=== PATIENT | female | born 1950 | race Hispanic/Latino ===

== ENCOUNTER 2016-07-16 15:51 | Emergency (ER) | payer OTHER ==
[~2016-07-16] VITALS: Ht 157.5 cm; Wt 96.2 kg
[~2016-07-16 15:51] MED LIST: BACTRIM DS 8001 TAB PO; HYDRODIURIL 2525 MG PO; KEFLEX500 MG PO; LISINOPRIL20 MG PO; PERCOCET 325 MG1 TA2 PO
[2016-07-16 15:59] VITALS: BP 119/84
[2016-07-16] MEDS ORDERED: LISINOPRIL20 M1 PO (16:54)
[2016-07-16] MEDS ORDERED: PANTOPRAZOLE SO40 M1 PO (16:54)
[2016-07-16] MEDS ORDERED: MULTI-DAY VITA1 EACH PO (16:54)
[2016-07-16] MEDS ORDERED: VIBRAMYCIN100 MG PO (17:05)
[2016-07-16] MEDS ORDERED: NAPROSYN500 M1 PO (17:05)
--- NOTE | 2016-07-16 17:05 | ED SKIN/ALLERGY COMPLAINT ---
History of Present Illness General Chief Complaint: Skin Rash/ Abcess Stated Complaint: ?ABCESS TO VAGINA Source: patient Exam Limitations: no limitations Vital Signs & Intake/Output Vital Signs & Intake/Output Vital Signs Date Time Temp Pulse Resp B/P B/P Pulse O2 O2 Flow FiO2 Mean Ox Delivery Rate 07/16 1642 99 Room Air 07/16 1559 98.2 69 16 119/84 96 Room Air Allergies Coded Allergies: NO KNOWN ALLERGIES (10/03/14) Reconcile Medications Doxycycline Hyclate (Vibramycin) 100 MG CAPSULE 1 CAP PO BID ABSCESS Lisinopril 20 MG TABLET 1 TAB PO DAILY BP (Reported) Multivitamin (Multi-Day Vitamins) 1 EACH TABLET 1 TAB PO DAILY SUPPLEMENT ( Reported) Naproxen (Naprosyn) 500 MG TABLET 1 TAB PO BID PRN PAIN AND INFLAMMATION Pantoprazole Sodium 40 MG TABLET.DR 1 TAB PO DAILY GI (Reported) Triage Note: TRIAGE: "I HAVE A BOIL TO THE TOP OF MY PRIVATE PART" X 1 WEEK, UNRELIEVED WITH WARM COMPRESSES. TOOK ASA WITH NO RELIEF. DENIES FEVERS, DRAINAGE OR DISCHARGE FROM SITE. UNABLE TO VISUALIZE IN TRIAGE. AFEBRILE Triage Nurses Notes Reviewed? yes HPI: This patient is a 66 year old female who presented for evaluation of possible abscess to groin region. She first noticed a bump about one week ago. The bump has gotten bigger, has not drained, and is painfl, up to a 5 out of 10. It is worse when sitting in certain positions. She tried taking aspirin and using warm compresses without any relief of her symptoms. Pain is nonradiating and constant. She denied any fevers, chills, or abdominal pain. (SHIVA LAW PA-C) Past History Travel History Traveled to [place] past 21 day No Medical History Any Pertinent Medical History? see below for history Neurological: NONE EENT: NONE Cardiovascular: hypertension Respiratory: NONE Gastrointestinal: NONE Hepatic: NONE Renal: NONE Musculoskeletal: NONE Psychiatric: NONE Endocrine: NONE Surgical History Surgical History: BILAT KNEE REPLACMENTS Psychosocial History What is your primary language Kazakh Tobacco Use: Current Daily Use Daily Tobacco Use Amount/Type: => 5 Cigarettes daily ETOH Use: denies use Illicit Drug Use: denies illicit drug use Family History Hx Contributory? No (SHIVA LAW PA-C) Review of Systems Review of Systems Constitutional: Reports: no symptoms. EENTM: Reports: no symptoms. Respiratory: Reports: no symptoms. Cardiovascular: Reports: no symptoms. GI: Reports: no symptoms. Musculoskeletal: Reports: no symptoms. Skin: Reports: see HPI. Neurological/Psychological: Reports: no symptoms. All Other Systems: Reviewed and Negative (SHIVA LAW PA-C) Physical Exam Physical Exam General Appearance: well developed/nourished, no apparent distress, alert, awake Comments: General: Well-developed, well-nourished person in no acute distress HEENT: Head normocephalic/atraumatic, moist mucous membranes Neck: Supple with no lymphadenopathy Back: Normal gait Respiratory: No respiratory distress. Speaking in full sentences Gential: Normal hair distribution. No edema to the external genitalia. 1 cm in diameter, raised lesion to the mons pubis with no drainage and no fluctuation. Indurated with no surrounding edema. Tender to palpation Neuro: A&Ox3 Psych: Mood and affest normal (SHIVA LAW PA-C) Progress Differential Diagnosis: abscess/cellulitis, allergic reaction, contact dermatitis, drug reaction, erythema multiforme, lyme disease, urticaria Plan of Care: This patient is a 66 year old female who presented for evaluation of abscess to mons pubis. Area is indurated and tender. No fluctuance or drainable fluid pockets at this time. This patient will be discharged with antibiotics and instructions for warm compresses and to return for any worsening symptoms. (SHIVA LAW PA-C) Departure Departure Disposition: HOME OR SELF CARE Condition: Stable Clinical Impression Primary Impression: Abscess Referrals: UNKNOWN (PCP) Additional Instructions: TAKE ANTIOBIOTIC PRESCRIBED. WARM COMPRESSES TO THE AREA. MEDICATION FOR PAIN PRESCRIBED. RETURN FOR ANY WORSENING SYMPTOMS OR CONCERNS. Departure Forms: Customer Survey General Discharge Information Prescriptions: Current Visit Scripts Naproxen (Naprosyn) 1 TAB PO BID PRN PAIN AND INFLAMMATION #20 TAB Doxycycline Hyclate (Vibramycin) 1 CAP PO BID #14 CAP (SHIVA LAW PA-C) PA/ERCO MACHINE OPERATOR Co-Sign Statement Statement: ED Attending supervision documentation- [] I saw and evaluated the patient. I have also reviewed all the pertinent lab results and diagnostic results. I agree with the findings and the plan of care as documented in the PA's/ERCO MACHINE OPERATOR's documentation. [X] I have reviewed the ED Record and agree with the PA's/ERCO MACHINE OPERATOR's documentation. [] Additions or exceptions (if any) to the PAs/ERCO MACHINE OPERATOR's note and plan are summarized below: [] (SILVINO CALDWELL,DANIEL)
== END 2016-07-16 17:13 ==
LOC: ERH 15:51
DX: L02.214 Cutaneous abscess of groin (principal)

== ENCOUNTER 2017-08-24 11:02 | Emergency (ER) | payer OTHER ==
[~2017-08-24] VITALS: Ht 157.5 cm; Wt 90.3 kg
[~2017-08-24 11:02] MED LIST changes: +LISINOPRIL20 M1 PO; +MULTI-DAY VITA1 EACH PO; +NAPROSYN500 M1 PO; +PANTOPRAZOLE SO40 M1 PO; +VIBRAMYCIN100 MG PO
--- NOTE | 2017-08-24 11:43 | ED GI/GU/ABDOMINAL COMPLAINT ---
History of Present Illness General Chief Complaint: Abdominal Pain/Flank Pain Stated Complaint: ABD PAIN, DX ULCER, GIVENRX, HERE NOW FOR PAIN Source: patient Exam Limitations: no limitations Vital Signs & Intake/Output Vital Signs & Intake/Output Vital Signs Date Time Temp Pulse Resp B/P B/P Pulse O2 O2 Flow FiO2 Mean Ox Delivery Rate 08/24 1222 Room Air 08/24 1108 97.9 80 20 143/94 96 Room Air Allergies Coded Allergies: No Known Allergies (08/24/17) Reconcile Medications Doxycycline Hyclate (Vibramycin) 100 MG CAPSULE 1 CAP PO BID ABSCESS Hydrocodone/Acetaminophen ([place] 5-325 Tablet) 5 MG-325 MG TABLET 1-2 TAB PO Q4-6 PRN PRN SEVERE PAIN Lidocaine HCl (Lidocaine HCl Viscous) 2 % SOLUTION 15 ML PO 4 TIMES/DAY ABDOMINAL INDU Lisinopril 20 MG TABLET 1 TAB PO DAILY BP (Reported) Multivitamin (Multi-Day Vitamins) 1 EACH TABLET 1 TAB PO DAILY SUPPLEMENT ( Reported) Naproxen (Naprosyn) 500 MG TABLET 1 TAB PO BID PRN PAIN AND INFLAMMATION Pantoprazole Sodium 40 MG TABLET.DR 1 TAB PO DAILY GI (Reported) Triage Note: TRIAGE: PT TO ER WITH DAUGHTER IN LAW C/C UPPER ABD PAIN X 1 WK, CONSTANT IN NATURE. +N/-V/-D. -URINARY S/S. LBM THIS AM WAS BLACK, LNBM WAS YESTERDAY. WAS SEEN AT [facility] YESTERDAY, HAD BLOOD AND URINE TESTS DONE. WAS GIVEN INSTRUCTIONS WITH INFORMATION ON "GASTRITIS VS ULCER" AND PRESCRIPTION FOR CARAFATE. HAS HAD 1 DOSE OF CARAFATE TODAY AND 1 DOSE YESTERDAY. REPORTS NO RELIEF OF SYMPTOMS WITH CARAFATE. Triage Nurses Notes Reviewed? yes LMP (ages 10-50): post menopausal ? n Is pt currently ? No Onset: Gradual Duration: week(s): (1), constant, continues in ED, getting worse Timing: single episode today Quality/Severity: burning, sharpness Severity Numbers: 8 Location: epigastric, periumbilical (superior) Radiation: no radiation Activities at Onset: none Prior Abdominal Problems: none Past Sexual History: Unobtainable at this time No Modifying Factors: none Modifying Factors: Worsens With: eating, lying down, palpation. Associated Symptoms: abdominal pain, nausea/vomiting, Black stool HPI: 67-year-old female past medical history of hypertension presents for evaluation of abdominal pain. Patient states that for the past week she has had pain in her epigastric and superior periumbilical area. The pain has been constant and getting worse. She's got pain as sharp and burning. It is worse with eating laying down and palpation of the area. Associated with nausea but no vomiting. Patient reports she was seen at [facility] yesterday for these symptoms. They did blood work urinalysis and diagnosed her with gastritis versus peptic ulcer disease. She was given Carafate and has been taking Protonix. She states she took a single dose of this but has not improved. She also notes that she had an episode of black stool today. She had a bowel movement yesterday that was normal. She states she did take Pepto-Bismol 2 days ago for symptoms without any improvement. She does not take blood thinners no dizziness lightheadedness chest pain shortness of breath back pain. She's never had a colonoscopy. She does report that 2 weeks ago she took aspirin for headache. She also has naproxen on her medication list. (Kermit Ace) Past History Travel History Traveled to [place] past 21 day No Medical History Any Pertinent Medical History? see below for history Neurological: NONE EENT: NONE Cardiovascular: hypertension Respiratory: NONE Gastrointestinal: NONE Hepatic: NONE Renal: NONE Musculoskeletal: NONE Psychiatric: NONE Endocrine: NONE Blood Disorders: NONE Cancer(s): NONE MEDICAID SERVICE COORDINATOR/Reproductive: NONE Surgical History Surgical History: BILAT KNEE REPLACMENTS Psychosocial History What is your primary language Estonian Tobacco Use: Current Daily Use Daily Tobacco Use Amount/Type: => 5 Cigarettes daily ETOH Use: denies use Illicit Drug Use: denies illicit drug use Family History Hx Contributory? No (Kermit Ace) Review of Systems Review of Systems Constitutional: Reports: no symptoms. EENTM: Reports: no symptoms. Respiratory: Reports: no symptoms. Cardiovascular: Reports: no symptoms. GI: Reports: see HPI, abdominal pain, melena, nausea. Genitourinary: Reports: no symptoms. Musculoskeletal: Reports: no symptoms. Skin: Reports: no symptoms. Neurological/Psychological: Reports: no symptoms. Hematologic/Endocrine: Reports: no symptoms. Immunologic/Allergic: Reports: no symptoms. All Other Systems: Reviewed and Negative (Kermit Ace) Physical Exam Physical Exam General Appearance: well developed/nourished, no apparent distress, alert, awake , mild distress, obese Head: atraumatic, normal appearance Eyes: Bilateral: normal appearance, PERRL, EOMI. Ears, Nose, Throat, Mouth: moist mucous membrane Neck: normal inspection, supple, full range of motion Respiratory: normal breath sounds, chest non-tender, no respiratory distress, lungs clear Cardiovascular: regular rate/rhythm, normal peripheral pulses, systolic murmur Peripheral Pulses: 2+ radial (R), 2+ radial (L) Gastrointestinal: normal bowel sounds, soft, no organomegaly, tenderness ( epigastric), tenderness to palpation in the epigastric and superior periumbilical area. No rebound or guarding abdomen is soft no rigidity Rectal: normal inspection, normal rectal tone, black stool (heme-negative) Back: normal inspection, normal range of motion, no cvat Extremities: normal range of motion Neurologic/Psych: no motor/sensory deficits, awake, alert, oriented x 3, normal gait Skin: intact, normal color, warm/dry Core Measures ACS in differential dx? No Sepsis Present: No Sepsis Focused Exam Completed? No (Diony GARCIA,Kermit) Progress Differential Diagnosis: biliary colic, bowel obstruction, colon cancer, diverticulitis, gastritis, ischemic bowel, inflamm bowel dis, pancreatitis, peptic ulcer, PUD/GERD, perforated viscous, SBO Diagnostic Imaging: Viewed by Me: CT Scan. Discussed w/RAD: CT Scan. Radiology Impression: PATIENT: ADILIA KILGORE PRESENT AGE: 67 PATIENT ACCOUNT NO: [id number] : 52 LOCATION: [facility] ORDERING PHYSICIAN: Kermit GARCIA SERVICE DATE: 08/24/17 EXAM TYPE: CAT - CT ABD & PELVIS W IV CONTRAST EXAMINATION: CT ABDOMEN AND PELVIS WITH CONTRAST CLINICAL INFORMATION: Pancreatitis, cholecystitis. Epigastric pain for one week. COMPARISON: None TECHNIQUE: Multidetector volumetric imaging was performed of the abdomen and pelvis following IV administration of 85 mL of Optiray 320 intravenous contrast. Sagittal and coronal reformatted images were obtained on the technologist's workstation. DLP: 477 mGy-cm FINDINGS: LUNG BASES: Linear subpleural opacity is noted in the medial right lung base likely representing scarring or atelectasis. A small hiatal hernia is present. LIVER, GALLBLADDER, AND BILIARY TREE: The liver is normal in size, shape, and attenuation. No focal hepatic lesion or biliary ductal dilatation is present. The gallbladder is unremarkable with no evidence of radiopaque gallstones, gallbladder wall thickening, or obvious pericholecystic inflammatory changes. PANCREAS: There is enlargement head of the pancreas with surrounding fat stranding. No loss of normal pancreatic parenchymal enhancement. No fluid collections. SPLEEN: Unremarkable. ADRENAL GLANDS: Unremarkable. KIDNEYS AND URETERS: The kidneys are normal in size, shape, and attenuation. No hydronephrosis, hydroureter, or calculi seen. No perinephric stranding. BLADDER: Unremarkable. GASTROINTESTINAL TRACT: Patient is status post sleeve gastrectomy. No evidence of leak or fluid collection around the stomach. No small bowel dilatation. The large bowel is unremarkable. Normal appendix. ABDOMINAL WALL: A small fat-containing umbilical hernia is noted. There are benign coarse subcutaneous fat calcifications in the subcutaneous soft tissue in the flanks bilaterally. LYMPH NODES: There are reactive peripancreatic and portacaval lymph nodes. VASCULAR: Unremarkable. The portal vein opacifies normally. The splenic vein opacifies normally. No large artery aneurysm appreciated. There are scattered atherosclerotic vascular calcifications. PELVIC VISCERA: Unremarkable. 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 Right convex curvature of the lumbar spine is noted. There is multilevel posterior facet arthropathy. There is severe bilateral neuroforaminal narrowing at L4-L5. IMPRESSION: 1. Interstitial pancreatitis involving the pancreatic head with no evidence of necrosis, fluid collection, or vascular complication at this time. 2. Small hiatal hernia. 3. 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 Consider further evaluation with nonemergent lumbar spine MRI if clinically indicated. DICTATED BY: Shawn Figueroa MD DATE/TIME DICTATED:08/24/171405 ELECTRONIC SENSING EQUIPMENT ASSEMBLER: MICHEL DATE/TIME TRANSCRIBED:08/24/171405 CONFIDENTIAL, DO NOT COPY WITHOUT APPROPRIATE AUTHORIZATION. <Electronically signed in Other Vendor System> SIGNED BY: Shawn Figueroa MD 08/24/17 142 Initial ED EKG: normal sinus rhythm, no ST T wave changes, age indeterminate inferior infarct (Black PA,Kermit) Plan of Care: Orders Procedure Date/time Status Add-on Test (ER Only) 08/24 1426 Active AMYLASE 08/24 1245 Complete Add-on Test (ER Only) 08/24 1140 Active URINALYSIS 08/24 1140 Active TROPONIN LEVEL 08/24 1118 Complete PARTIAL THROMBOPLASTIN TIME 08/24 1118 Complete PROTHROMBIN TIME 08/24 1118 Complete LIPASE 08/24 1118 Complete LACTIC ACID 08/24 1118 Complete COMPREHENSIVE METABOLIC PANEL 08/24 1118 Complete CBC WITHOUT DIFFERENTIAL 08/24 111 Complete EKG 08/24 111 Active Laboratory Tests 08/24/17 1245: Anion Gap 9, Estimated GFR > 60, BUN/Creatinine Ratio 20.0, Glucose 100 H, Lactic Acid 0.7, Calcium 9.8, Total Bilirubin 0.8, AST 45 H, ALT 48, Alkaline Phosphatase 122, Troponin I < 0.01, Total Protein 6.9, Albumin 3.8, Globulin 3.1 , Albumin/Globulin Ratio 1.2, Amylase 74, Lipase 116, PT 11.7, INR 1.07, APTT 32 08/24/17 1205: CBC w Diff NO MAN DIFF REQ, RBC 4.28, MCV 93.1, MCH 31.3 H, MCHC 33.6, RDW 13.8 , MPV 10.3, Gran % 74.6, Lymphocytes % 17.2 L, Monocytes % 6.5, Eosinophils % 1.2, Basophils % 0.5, Absolute Granulocytes 7.4 H, Absolute Lymphocytes 1.7, Absolute Monocytes 0.6, Absolute Eosinophils 0.1, Absolute Basophils 0 Patient seen and evaluated. She is here with epigastric and periumbilical abdominal pain for the past week. She also reports a episode of black stool today. She does not take blood thinners. Her vital signs are stable. She was seen at [facility] yesterday given Carafate and Protonix. She also reports using Pepto-Bismol without much improvement. She denies any vomiting but does report nausea. Rectal exam does reveal black stool but it is heme negative. She is also been using naproxen and aspirin. Labs EKG ordered. Patient medicated with IV Protonix Zofran and GI cocktail. Patient will also get a CAT scan. On reevaluation patient reports significant improvement after GI cocktail. Blood work is not showing any significant findings including a negative lipase and amylase. CT scan suggests interstitial pancreatitis the pancreatic head. Patient does not have any gallstones. She denies alcohol use. She has no previous history of pancreatitis. He is been no nausea or vomiting. Reviewed results with patient. She was given a second GI cocktail and overall is feeling much better. She'll be instructed to continue viscous lidocaine pantoprazole as directed. Follow-up with gastroenterology on Saturday. Discussed with patient the importance of close follow-up. Discussed return precautions in detail return immediately with worsening pain and bright red blood per rectum vomiting fever or any other concerns. Case discussed with Dr. Stone he agrees the plan patient agrees the plan (Kermit Ace) (Bertha CALDWELL,Cesar Hicks) Departure Departure Disposition: HOME OR SELF CARE Condition: Stable Clinical Impression Primary Impression: Gastritis Qualifiers: Gastritis type: unspecified gastritis Chronicity: acute Gastritis bleeding: without bleeding Qualified Code: K29.00 - Acute gastritis without bleeding Secondary Impressions: Pancreatitis Qualifiers: Chronicity: acute Pancreatitis type: unspecified pancreatitis type Acute pancreatitis complication: unspecified Qualified Code: K85.90 - Acute pancreatitis without necrosis or infection, unspecified Referrals: Hermelinda CALDWELL,Rodriguez Will (PCP) Additional Instructions: Avoid greasy fatty spicy foods. Eat a clear liquid diet for the next 24 hours then advance as tolerated. Continue pantoprazole. Viscous lidocaine can also be used as needed for abdominal pain. Vicodin for severe pain only this may cause drowsiness. Make a follow point with Dr. Ang revenue liaison as soon as possible. Call his office on Saturday. Monitor symptoms closely if you have worsening pain blood in her stool vomiting or any other concerns return immediately. Please go over all results of today's visit with your primary care doctor. Contact your primary care doctor to let them know you were here in the emergency room. There may be nonspecific findings which may not be related to your visit today here in the emergency room but may require further evaluation and chronic monitoring by your primary care doctor. If you had a laceration today the chance of foreign body always remains. You should follow-up with your primary care doctor for recheck in 3-5 days for a wound check. If you had an x-ray done there is a chance that a fracture could have been missed on initial read and you should follow-up with your primary care doctor for repeat x-rays if symptoms persist. If your blood pressure was elevated here in the emergency room please have rechecked by her primary care doctor within the next 48 hours by your primary care doctor. If you were prescribed a narcotic here in the emergency room or any type of controlled substances you're not allowed to drive while taking this medication or operate any type of heavy machinery. Narcotics can make you feel lightheaded dizziness nausea and can cause constipation. You may need to garbage pick up man a stool softener. Thank you for choosing [facility] emergency room. Please return to the emergency room immediately if you have any other concerns worsening of symptoms. Departure Forms: Customer Survey General Discharge Information Prescriptions: Current Visit Scripts Hydrocodone/Acetaminophen ([place] 5-325 Tablet) 1-2 TAB PO Q4-6 PRN PRN SEVERE PAIN #10 TAB Lidocaine HCl (Lidocaine HCl Viscous) 15 ML PO 4 TIMES/DAY #100 ML (Kermit Ace) PA/IT SALES CONSULTANT Co-Sign Statement Statement: ED Attending supervision documentation- [] I saw and evaluated the patient. I have also reviewed all the pertinent lab results and diagnostic results. I agree with the findings and the plan of care as documented in the PA's/IT SALES CONSULTANT's documentation. [x] I have reviewed the ED Record and agree with the PA's/IT SALES CONSULTANT's documentation. [] Additions or exceptions (if any) to the PAs/IT SALES CONSULTANT's note and plan are summarized below: [] (Bertha CALDWELL,Cesar Hicks)
[2017-08-24 12:14] LABS: ABSOLUTE BASOPHIL COUNT 0 /CUMM (0.0-0.2); ABSOLUTE EOSINOPHIL COUNT 0.1 /CUMM (0.0-0.7); ABSOLUTE GRANULOCYTE CT 7.4 /CUMM (1.4-6.5); ABSOLUTE LYMPH COUNT 1.7 /CUMM (1.2-3.4); ABSOLUTE MONOCYTE COUNT 0.6 /CUMM (0.10-0.60); BASOPHIL % 0.5 % (0.0-2.0); EOSINOPHIL % 1.2 % (0-5); GRANULOCYTE % 74.6 % (42.2-75.2); HEMATOCRIT 39.8 % (37-47); MEAN CORPUSCULAR HGB 31.3 PG (27.0-31.0); MEAN CORPUSCULAR HGB CONC 33.6 G/DL (33.0-37.0); MEAN CORPUSCULAR VOLUME 93.1 FL (81.0-99.0); MEAN PLATELET VOLUME 10.3 FL (7.4-10.4); PLATELET COUNT 201 /CUMM (130-400); RBC DISTRIBUTION WIDTH 13.8 % (11.5-14.5); RED BLOOD CELL CT 4.28 /CUMM (4.20-5.40); WHITE BLOOD CELL COUNT 9.9 /CUMM (4.8-10.8)
[2017-08-24 13:09] LABS: PT 11.7 SEC (9.4-12.5); PTT 32 SEC (25-37)
--- NOTE | 2017-08-24 14:22 | CT SCAN REPORT ---
EXAMINATION: CT ABDOMEN AND PELVIS WITH CONTRAST CLINICAL INFORMATION: Pancreatitis, cholecystitis. Epigastric pain for one week. COMPARISON: None TECHNIQUE: Multidetector volumetric imaging was performed of the abdomen and pelvis following IV administration of 85 mL of Optiray 320 intravenous contrast. Sagittal and coronal reformatted images were obtained on the technologist's workstation. DLP: 477 mGy-cm FINDINGS: LUNG BASES: Linear subpleural opacity is noted in the medial right lung base likely representing scarring or atelectasis. A small hiatal hernia is present. LIVER, GALLBLADDER, AND BILIARY TREE: The liver is normal in size, shape, and attenuation. No focal hepatic lesion or biliary ductal dilatation is present. The gallbladder is unremarkable with no evidence of radiopaque gallstones, gallbladder wall thickening, or obvious pericholecystic inflammatory changes. PANCREAS: There is enlargement head of the pancreas with surrounding fat stranding. No loss of normal pancreatic parenchymal enhancement. No fluid collections. SPLEEN: Unremarkable. ADRENAL GLANDS: Unremarkable. KIDNEYS AND URETERS: The kidneys are normal in size, shape, and attenuation. No hydronephrosis, hydroureter, or calculi seen. No perinephric stranding. BLADDER: Unremarkable. GASTROINTESTINAL TRACT: Patient is status post sleeve gastrectomy. No evidence of leak or fluid collection around the stomach. No small bowel dilatation. The large bowel is unremarkable. Normal appendix. ABDOMINAL WALL: A small fat-containing umbilical hernia is noted. There are benign coarse subcutaneous fat calcifications in the subcutaneous soft tissue in the flanks bilaterally. LYMPH NODES: There are reactive peripancreatic and portacaval lymph nodes. VASCULAR: Unremarkable. The portal vein opacifies normally. The splenic vein opacifies normally. No large artery aneurysm appreciated. There are scattered atherosclerotic vascular calcifications. PELVIC VISCERA: Unremarkable. 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 Right convex curvature of the lumbar spine is noted. There is multilevel posterior facet arthropathy. There is severe bilateral neuroforaminal narrowing at L4-L5. IMPRESSION: 1. Interstitial pancreatitis involving the pancreatic head with no evidence of necrosis, fluid collection, or vascular complication at this time. 2. Small hiatal hernia. 3. 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 Consider further evaluation with nonemergent lumbar spine MRI if clinically indicated.
[2017-08-24] MEDS ORDERED: NORCO 5-325 TA1 EACH PO (15:04)
[2017-08-24] MEDS ORDERED: LIDOCAINE HCL V15 ML PO (15:04)
[2017-08-24 15:17] VITALS: BP 129/84
== END 2017-08-24 15:41 ==
LOC: ERH 11:02
PROVIDERS: Physician Assistant Medical
DX: K29.70 Gastritis, unspecified, without bleeding (principal); K85.90 Acute pancreatitis without necrosis or infection, unspecified
CPT/HCPCS: 74177; 93005; 93010; 96374; J2405

== ENCOUNTER 2017-09-17 22:52 | Emergency (ER) | payer OTHER ==
[~2017-09-17] VITALS: Ht 157.5 cm; Wt 90.7 kg
[~2017-09-17 22:52] MED LIST changes: +LIDOCAINE HCL V15 ML PO; +NORCO 5-325 TA1 EACH PO
[2017-09-17 23:14] VITALS: BP 172/92
[2017-09-17 23:50] LABS: ABSOLUTE BASOPHIL COUNT 0.1 /CUMM (0.0-0.2); ABSOLUTE EOSINOPHIL COUNT 0.2 /CUMM (0.0-0.7); ABSOLUTE GRANULOCYTE CT 7.4 /CUMM (1.4-6.5); ABSOLUTE LYMPH COUNT 2.7 /CUMM (1.2-3.4); ABSOLUTE MONOCYTE COUNT 0.7 /CUMM (0.10-0.60); BASOPHIL % 0.5 % (0.0-2.0); EOSINOPHIL % 1.9 % (0-5); GRANULOCYTE % 66.6 % (42.2-75.2); HEMATOCRIT 39.8 % (37-47); MEAN CORPUSCULAR HGB 31.8 PG (27.0-31.0); MEAN CORPUSCULAR HGB CONC 34.2 G/DL (33.0-37.0); MEAN CORPUSCULAR VOLUME 92.9 FL (81.0-99.0); MEAN PLATELET VOLUME 10.3 FL (7.4-10.4); PLATELET COUNT 168 /CUMM (130-400); RBC DISTRIBUTION WIDTH 13.3 % (11.5-14.5); RED BLOOD CELL CT 4.29 /CUMM (4.20-5.40); WHITE BLOOD CELL COUNT 11.2 /CUMM (4.8-10.8)
--- NOTE | 2017-09-17 23:58 | ED GI/GU/ABDOMINAL COMPLAINT ---
History of Present Illness General Chief Complaint: Abdominal Pain/Flank Pain Stated Complaint: ABD PAIN Source: patient Exam Limitations: no limitations Vital Signs & Intake/Output Vital Signs & Intake/Output Vital Signs Date Time Temp Pulse Resp B/P B/P Pulse O2 O2 Flow FiO2 Mean Ox Delivery Rate 09/18 0035 Room Air 09/17 2314 98.3 78 18 172/92 97 Room Air ED Intake and Output 09/18 0000 09/17 1200 Intake Total Output Total Balance Patient 200 lb Weight Weight Reported by Patient Measurement Method Allergies Coded Allergies: No Known Allergies (08/24/17) Reconcile Medications Doxycycline Hyclate (Vibramycin) 100 MG CAPSULE 1 CAP PO BID ABSCESS Hydrocodone/Acetaminophen (Dudley 5-325 Tablet) 5 MG-325 MG TABLET 1-2 TAB PO Q4-6 PRN PRN SEVERE PAIN Lidocaine HCl (Lidocaine HCl Viscous) 2 % SOLUTION 15 ML PO 4 TIMES/DAY ABDOMINAL INDU Lisinopril 20 MG TABLET 1 TAB PO DAILY BP (Reported) Multivitamin (Multi-Day Vitamins) 1 EACH TABLET 1 TAB PO DAILY SUPPLEMENT ( Reported) Naproxen (Naprosyn) 500 MG TABLET 1 TAB PO BID PRN PAIN AND INFLAMMATION Omeprazole Magnesium (Prilosec Otc) 20 MG TABLET.DR 1 TAB PO BID stomach burning Pantoprazole Sodium 40 MG TABLET.DR 1 TAB PO DAILY GI (Reported) Triage Note: PT FROM HOME C/O MID ABD PAIN X4 WEEKS, PT SEEN HERE 3 WEEKS PRIOR FOR SAME, PT STATED CT SCAN SHOWED AN ULCER AND INFLAMMATION. PT STATES HAS AN APPT THURS FOR GI, BUT PAIN BECAME 10/10. PT STATES MID ABD CRAMPING THAT IS NON RADIATING. BP ELEVATED 172/92 IN TRIAGE. Triage Nurses Notes Reviewed? yes ? n Is pt currently ? No Duration: day(s): Timing: recent history Location: epigastric Radiation: no radiation Activities at Onset: none Modifying Factors: Worsens With: palpation. Associated Symptoms: abdominal pain HPI: 67 yo woman with 2 days of mid epigastric burning pain, worse at night, without nausea, vomiting, diarrhea. She was seen on 08/24/17, had a ct scan suggested of pancreatitis, but with normal labs. She felt better with a gi cocktail, but didn't take any meds afterwards. Of note, she shares that the pain is worse after eating spicy foods. She ate spicy foods yesterday. She shares other risk factors for GI issues. She smokes cigarettes, enjoys spicy foods, but does not regularly drink alcohol. She notes no radiation, chest pain, shortness of breath, diaphoresis. She is otherwise well. Past History Travel History Traveled to [place] past 21 day No Medical History Any Pertinent Medical History? 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 No Review of Systems Review of Systems Constitutional: Denies: see HPI. Physical Exam Physical Exam Gastrointestinal: normal bowel sounds, soft, mild mid epigastric tenderness to palpation. no rebound. no guarding. no romero's sign. no rlq tenderness. Comments: Review of Systems - except as otherwise noted in HPI Review of Systems Constitutional:no symptoms. EENTM:no symptoms. Respiratory:no symptoms. Cardiovascular:no symptoms. GI:no symptoms. Genitourinary:no symptoms. Musculoskeletal:no symptoms. Skin:no symptoms. Neurological/Psychological:no symptoms. Hematologic/Endocrine:no symptoms. Immunologic/Allergic:no symptoms. All Other Systems: Reviewed and Negative Physical Exam Physical Exam General Appearance: well developed/nourished, no apparent distress Head: atraumatic, normal appearance Eyes: Bilateral: normal appearance. Ears, Nose, Throat: normal pharynx, normal ENT inspection Neck: normal inspection, supple, full range of motion Respiratory: normal breath sounds, chest non-tender, no respiratory distress, quiet respiration, lungs clear Cardiovascular: regular rate/rhythm Gastrointestinal: see above Back: normal inspection, normal range of motion Extremities: normal inspection, normal capillary refill, normal range of motion, no edema Neurologic/Psych: no motor/sensory deficits, awake, alert, oriented x 3 Skin: intact, normal color, warm/dry Core Measures ACS in differential dx? No Sepsis Present: No Sepsis Focused Exam Completed? No Progress Differential Diagnosis: gastritis, reflux vs other. Plan of Care: Orders Procedure Date/time Status TROPONIN LEVEL 09/17 2302 Complete LIPASE 07/10 2302 Complete HEPATIC FUNCTION PANEL 09/17 2301 Complete CBC WITHOUT DIFFERENTIAL 09/17 2301 Complete BASIC METABOLIC PANEL 09/17 2301 Complete AMYLASE 09/17 2301 Complete EKG 09/17 2301 Active Laboratory Tests 09/17/17 2330: Anion Gap 13, Estimated GFR > 60, BUN/Creatinine Ratio 28.6 H, Glucose 99, Calcium 10.0, Total Bilirubin 0.5, Direct Bilirubin 0.2, AST 42 H, ALT 53 H, Alkaline Phosphatase 117, Troponin I < 0.01, Total Protein 7.1, Albumin 4.1, Amylase 103, Lipase 293, CBC w Diff NO MAN DIFF REQ, RBC 4.29, MCV 92.9, MCH 31.8 H, MCHC 34.2, RDW 13.3, MPV 10.3, Gran % 66.6, Lymphocytes % 24.5, Monocytes % 6.5, Eosinophils % 1.9, Basophils % 0.5, Absolute Granulocytes 7.4 H, Absolute Lymphocytes 2.7, Absolute Monocytes 0.7 H, Absolute Eosinophils 0.2 , Absolute Basophils 0.1 Diagnostic Imaging: Viewed by Me: CT Scan. Discussed w/RAD: CT Scan. Radiology Impression: PATIENT: ADILIA KILGORE PRESENT AGE: 67 PATIENT ACCOUNT NO: [id number] : 52 LOCATION: [facility] ORDERING PHYSICIAN: Kermit GARCIA SERVICE DATE: 08/24/17 EXAM TYPE: CAT - CT ABD & PELVIS W IV CONTRAST EXAMINATION: CT ABDOMEN AND PELVIS WITH CONTRAST CLINICAL INFORMATION: Pancreatitis, cholecystitis. Epigastric pain for one week. COMPARISON: None TECHNIQUE: Multidetector volumetric imaging was performed of the abdomen and pelvis following IV administration of 85 mL of Optiray 320 intravenous contrast. Sagittal and coronal reformatted images were obtained on the technologist's workstation. DLP: 477 mGy-cm FINDINGS: LUNG BASES: Linear subpleural opacity is noted in the medial right lung base likely representing scarring or atelectasis. A small hiatal hernia is present. LIVER, GALLBLADDER, AND BILIARY TREE: The liver is normal in size, shape, and attenuation. No focal hepatic lesion or biliary ductal dilatation is present. The gallbladder is unremarkable with no evidence of radiopaque gallstones, gallbladder wall thickening, or obvious pericholecystic inflammatory changes. PANCREAS: There is enlargement head of the pancreas with surrounding fat stranding. No loss of normal pancreatic parenchymal enhancement. No fluid collections. SPLEEN: Unremarkable. ADRENAL GLANDS: Unremarkable. KIDNEYS AND URETERS: The kidneys are normal in size, shape, and attenuation. No hydronephrosis, hydroureter, or calculi seen. No perinephric stranding. BLADDER: Unremarkable. GASTROINTESTINAL TRACT: Patient is status post sleeve gastrectomy. No evidence of leak or fluid collection around the stomach. No small bowel dilatation. The large bowel is unremarkable. Normal appendix. ABDOMINAL WALL: A small fat-containing umbilical hernia is noted. There are benign coarse subcutaneous fat calcifications in the subcutaneous soft tissue in the flanks bilaterally. LYMPH NODES: There are reactive peripancreatic and portacaval lymph nodes. VASCULAR: Unremarkable. The portal vein opacifies normally. The splenic vein opacifies normally. No large artery aneurysm appreciated. There are scattered atherosclerotic vascular calcifications. PELVIC VISCERA: Unremarkable. 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 Right convex curvature of the lumbar spine is noted. There is multilevel posterior facet arthropathy. There is severe bilateral neuroforaminal narrowing at L4-L5. IMPRESSION: 1. Interstitial pancreatitis involving the pancreatic head with no evidence of necrosis, fluid collection, or vascular complication at this time. 2. Small hiatal hernia. 3. 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 Consider further evaluation with nonemergent lumbar spine MRI if clinically indicated. DICTATED BY: Shawn Figueroa MD DATE/TIME DICTATED:08/24/171405 REHABILITATION PSYCHOLOGIST: MICHEL DATE/TIME TRANSCRIBED:08/24/171405 CONFIDENTIAL, DO NOT COPY WITHOUT APPROPRIATE AUTHORIZATION. <Electronically signed in Other Vendor System> SIGNED BY: Shawn Figueroa MD 08/24/17 1424 Initial ED EKG: sinus, no acute changes Departure Departure Disposition: HOME OR SELF CARE Condition: Stable Clinical Impression Primary Impression: Abdominal pain Secondary Impressions: Gastritis Referrals: Unknown (PCP) Departure Forms: Customer Survey General Discharge Information Prescriptions: Current Visit Scripts Omeprazole Magnesium (Prilosec Otc) 1 TAB PO BID #60 TAB Comments pt with benign labs, reassuring physical exam...pt given GI cocktail... pt safe for discharge... if not better, pt counseled to return for further care. pt referred to GI.
[2017-09-18] MEDS ORDERED: PRILOSEC OTC20 M1 PO (00:31)
== END 2017-09-18 00:40 ==
LOC: ERH 22:52
PROVIDERS: Pediatrics
DX: K29.70 Gastritis, unspecified, without bleeding (principal)
CPT/HCPCS: 93005; 93010